=== PATIENT | female | born 1985 | race Caucasian/White ===

== ENCOUNTER 2018-04-12 10:15 | Emergency (ER) | payer BC ==
[~2018-04-12] VITALS: Ht 162.6 cm; Wt 113.6 kg
[~2018-04-12 10:15] MED LIST: ANTIVERT 25MG25 MG PO; BCP TD; CLARITIN 1010 MG/TAB PO; ESTRACE; LIPITOR20 MG PO; MAXZIDE PO; MOBIC15 MG PO; MOTRIN 800800 MG/TAB PO; NO HOME MEDICATIONS; NORCO 325 MG-51 TAB PO; NORCO 325 MG-7.1 TAB PO; PERCOCET 5/321 UDTAB PO; PRAVACHOL 40MG40 MG PO; PRENATAL VITAMI1 TA5 PO; PRENATAL1 TA1 PO; PRILOSEC10 MG PO; PROVENTIL0.09 MG/A1 IH; SINGULAIR 110 MG/TAB PO; SPRINTEC 35 MCG1 TAB PO; TUDORZA IH; ZOFRAN 4MG T4 MG/TAB PO
[2018-04-12 10:20] VITALS: BP 137/72; TEMP 98.2
[2018-04-12 11:07] LABS: BASO % 0.4 % (0.0-2.0); EOS # 0.1 (0.0-0.7); GRAN # 4.9 (1.4-6.5); GRAN % 62.7 % (42.2-75.2); HEMATOCRIT 37.6 % (37.0-47.0); HEMOGLOBIN 12.5 g/dl (12.5-16.0); LYMPH # 2.2 (1.2-3.4); LYMPH % 28.9 % (20.0-51.0); MEAN CELL VOLUME 92 fl (80.0-100.0); MEAN CORPUSCULAR HEMOGLOBIN 31 pg (27.0-31.0); MEAN CORPUSCULAR HGB CONC 33 g/dl (33.0-37.0); MEAN PLATELET VOLUME 9.9 fl (7.4-10.4); MONO # 0.5 (0.1-0.6); MONO % 6.7 % (1.7-9.3); PLATELET COUNT 357 K/mm3 (130-400); RED BLOOD COUNT 4.08 M/mm3 (4.10-5.30); REDCELL DISTRIBUTION WIDTH-CV 12.1 % (11.5-14.5)
[2018-04-12 11:11] LABS: ALBUMIN 3.5 gm/dL (3.5-5.0); BILIRUBIN,TOTAL 0.3 mg/dL (0.0-1.0); CALCIUM 8.9 mg/dL (8.4-10.2); CREATININE, serum 0.79 mg/dL (0.52-1.25); POTASSIUM 4.4 mmol/L (3.4-5.0)
[2018-04-12 12:22] VITALS: PULSE 68
== END 2018-04-12 12:23 | disposition home or self-care (01) ==
LOC: COL.ER 10:15
PROVIDERS: Emergency Medicine
DX: M79.604 Pain in right leg (principal); Z86.718 Personal history of other venous thrombosis and embolism

== ENCOUNTER → 2018-04-22 | Outpatient (CLI) | payer BC | LOC: COL.VAS 13:01 | DX: I08.1 Rheumatic disorders of both mitral and tricuspid valves (principal); R60.0 Localized edema; R42 Dizziness and giddiness ==

== ENCOUNTER → 2019-07-23 | Outpatient (CLI) | payer BC | LOC: MC.RAD 07:00 | DX: Z12.31 Encounter for screening mammogram for malignant neoplasm of breast (principal) ==

== ENCOUNTER → 2019-10-27 | Outpatient (CLI) | payer BC | LOC: COL.RAD 10:10 | DX: N92.0 Excessive and frequent menstruation with regular cycle (principal); N83.8 Other noninflammatory disorders of ovary, fallopian tube and broad ligament ==

== ENCOUNTER → 2021-10-04 | Outpatient (CLI) | payer BC | LOC: COL.RAD 10:21 | DX: G93.2 Benign intracranial hypertension (principal) | CPT/HCPCS: Q9967 ==

== ENCOUNTER → 2022-03-13 | Outpatient (CLI) | payer BC | LOC: COL.RAD 02-15 07:30 | DX: H47.091 Other disorders of optic nerve, not elsewhere classified, right eye (principal) | CPT/HCPCS: A9575 ==

== ENCOUNTER 2022-04-13 07:43 | Outpatient (CLI) | payer BC ==
[2022-04-13] VITALS (7 sets, daily range): BP systolic 108–120; BP diastolic 62–83; PULSE 60–71; TEMP 97.8
[~2022-04-13] VITALS: Ht 162.6 cm; Wt 137.1 kg
[~2022-04-13 07:43] MED LIST changes: +K-DUR20 MEQ PO; +MAXZIDE-25MG TA1 TAB PO; +PRILOSEC 20MG20 MG PO; +TOPAMAX 25MG25 M1 PO
[2022-04-13] MEDS ORDERED: BENADRYL50 MG PO (08:17)
[2022-04-13 10:46] LABS: CSF APPEARANCE CLEAR; CSF COLOR COLORLESS; CSF RBC 0 /mm3 (0-0)
[2022-04-13 10:57] LABS: CSF MONONUCLEAR 100 % (70-100); CSF POLYMORPHONUCLEAR 0 % (0-6)
--- NOTE | 2022-04-13 11:39 | NUR ---
Discharge instructions given to pt.pt verbalizes understanding.Pt escorted out by this nurse.
[2022-04-13 11:51] LABS: GLUCOSE,CSF 55 mg/dL (40-70); TOTAL PROTEIN,CSF 32 mg/dL (15-45)
[2022-04-19 12:37] LABS: ALBUMIN CSF 16.3 mg/dL (<=27.0)
[2022-04-19 12:55] LABS: CSF IGG/ALBUMIN 0.15 (<=0.21); CSF,IGG 2.4 mg/dL (<=8.1)
[2022-04-20 15:26] LABS: CSF SYNTHESIS RATE 1.39 mg/24 h (<=12); CSF-IGG INDEX 0.6 (<=0.85); IGG/ALBUMIN SERUM 0.25 (<=0.40)
== END 2022-04-13 17:13 ==
LOC: COL.RAD 07:43
PROVIDERS: Psychiatry & Neurology Neurology
DX: G43.909 Migraine, unspecified, not intractable, without status migrainosus (principal); H53.9 Unspecified visual disturbance; R90.89 Other abnormal findings on diagnostic imaging of central nervous system